=== PATIENT | male | born 1985 | race Caucasian/White ===

== ENCOUNTER 2017-08-30 12:18 | Emergency (ER) | payer SELFPAY ==
[~2017-08-30 12:18] MED LIST: IBUP800T23 PO; METH750T2 PO
--- NOTE | 2017-08-30 12:36 | PD ---
HPI Chief Complaint: Injury Time Seen by Provider: 12:28 Travel History International Travel<30 days: No Contact w/Intl Traveler<30days: No Traveled to known affect area: No History of Present Illness HPI 32-year-old male presents to emergency department complaining of left knee pain after a twist and fall that occurred today. Patient states that he was trying to move his nephew out of the street and moved quickly away from the street. Patient describes a plant and turn injury. He subsequently fell to the ground hitting his knee. States that he is able to walk however he is having moderate to severe aching pain with any range of motion of his knee. Patient denies numbness or tingling of the extremity but does state that some of pain radiates up and down his leg. Patient denies chronic medical issues or chronic medication use. He is a smoker. PFSH Past Medical History Arthritis: No Asthma: No Autoimmune Disease: No Blood Disorders: No Anxiety: No Depression: No Cancer: No Chemotherapy: No COPD: No Cerebrovascular Accident: No Diminished Hearing: No Gastrointestinal Disorders: No Headaches: No Hypertension: No Neurologic: No Psychiatric: No Reproductive: No Immunizations Current: Yes Radiation Therapy: No Renal Failure: No Seizures: Yes (as infant) Sickle Cell Disease: No Thyroid Disease: No PNEUMOCCOCAL Vaccine (Year): 2007 Past Surgical History AICD: No Pacemaker: No Other Surgery: No Social History Alcohol Use: Yes (2-3/week (4 shots/3 beers tonight)) Tobacco Use: Yes (1PPD) Substance Use: No Allergies-Medications (Allergen,Severity, Reaction): Coded Allergies: No Known Allergies (Verified , 03/28/15) Reported Meds & Prescriptions Reported Meds & Active Scripts Active Robaxin (Methocarbamol) 750 Mg Tab 750 Mg PO QID Ibuprofen 800 Mg Tab 800 Mg PO TID 10 Days Review of Systems Except as stated in HPI: all other systems reviewed are Neg Physical Exam Narrative GENERAL: Well-nourished, well-developed patient. SKIN: Focused skin assessment warm/dry. HEAD: Normocephalic. EYES: No scleral icterus. No injection or drainage. NECK: Supple, trachea midline. No JVD or lymphadenopathy. CARDIOVASCULAR: Regular rate and rhythm without murmurs, gallops, or rubs. LUNGS: Diffuse wheezing without rales or rhonchi. MUSCULOSKELETAL: No cyanosis, or edema. Left knee- warmth to the area. Mild edema especially the medial aspect. Tenderness to palpation of medial aspect. Limited range of motion to the extremes secondary to pain. No clicking. Difficulty performing varus valgus posterior and anterior drawer secondary to pain. BACK: Nontender without obvious deformity. No CVA tenderness. Data Data Last Documented VS Vital Signs Date Time Temp Pulse Resp B/P (MAP) Pulse Ox O2 Delivery O2 Flow Rate FiO2 08/30/17 13:46 08/30/17 13:04 81 18 98 Room Air Orders Orders Knee, Complete (4vws) (08/30/17 ) Ibuprofen (Motrin) (08/30/17 12:45) Ed Discharge Order (08/30/17 13:34) [facility] Medical Decision Making Medical Screen Exam Complete: Yes Emergency Medical Condition: Yes Differential Diagnosis Left knee sprain versus strain versus fracture Narrative Course 32-year-old male presents to emergency department complaining of left knee pain after a twist and fall that occurred today. Patient states that he was trying to move his nephew out of the street and moved quickly away from the street. Patient describes a plant and turn injury. He subsequently fell to the ground hitting his knee. States that he is able to walk however he is having moderate to severe aching pain with any range of motion of his knee. Patient denies numbness or tingling of the extremity but does state that some of pain radiates up and down his leg. Patient denies chronic medical issues or chronic medication use. He is a smoker. Vital signs stable Physical exam consistent with a ligamental versus meniscal injury. Skin intact. No obvious deformities. Mild edema of the medial aspect of knee. Left knee [id number] for acute process Ibuprofen 800 mg administered in the emergency department. Patient advised to use rzvw-nwo-uuunyso Profen Tylenol for pain relief. Advised follow-up primary care physician within 2-3 days. Follow-up in the emergency department for worsening or persistent symptoms. Diagnosis Primary Impression: Left knee sprain Qualified Codes: S83.92XA - Sprain of unspecified site of left knee, initial encounter Referrals: [facility] Additional Instructions: Use ice or heat for symptom relief. If symptoms persist or worsen, return to the emergency department. Follow up with your primary care physician within 2 days. Continue [id number] ibuprofen or Tylenol per package instructions Disposition: DISCHARGE HOME Condition: Stable Doris Jorge Aug 30, 2017 12:36
[2017-08-30] MEDS ORDERED: IBUPROFEN 800 MG TAB PO ONE (12:45)
[2017-08-30 13:04] VITALS: BP 124/89; PULSE 81; RESP 18; O2SAT 98
--- NOTE | 2017-08-30 13:25 | RADRPT ---
EXAM DATE/TIME: 08/30/2017 12:50 [facility] COMPARISON: No previous studies available for comparison. INDICATIONS : Fall onto left knee, pain across distal femur with pain radiating into posterior knee. MEDICAL HISTORY : None. SURGICAL HISTORY : None. ENCOUNTER: Initial ACUITY: 3 days PAIN SCORE: 10/10 LOCATION: Left knee. FINDINGS: Four view examination of the left knee demonstrates no evidence of fracture or dislocation. Bony min eralization is normal. The articular surfaces are intact. The suprapatellar soft tissues have a nor mal configuration. CONCLUSION: Negative exam. No acute fracture/effusion. Manuel Reyna MD on August 30, 2017 at 13:23 Board Certified Radiologist. This report was verified electronically.
== END 2017-08-30 13:47 | disposition home or self-care (01) ==
LOC: NEPK 12:18
DX: S83.92XA Sprain of unspecified site of left knee, initial encounter (principal); W19.XXXA Unspecified fall, initial encounter; Y93.89 Activity, other specified; Y92.410 Unspecified street and highway as the place of occurrence of the external cause
CPT/HCPCS: 73564; 99283

== ENCOUNTER 2017-12-07 13:56 | Emergency (ER) | payer SELFPAY ==
[~2017-12-07] VITALS: Ht 177.8 cm; Wt 79.1 kg
[2017-12-07 13:57] VITALS: BP 127/74; PULSE 95; RESP 16; TEMP 97.9; O2SAT 96
--- NOTE | 2017-12-07 15:07 | PD ---
HPI Chief Complaint: Back/ Neck Pain or Injury Time Seen by Provider: 14:03 Travel History International Travel<30 days: No Contact w/Intl Traveler<30days: No Traveled to known affect area: No History of Present Illness HPI 32-year-old male here with low back pain since this morning. He denies injury or trauma. 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 He denies fever or chills. No incontinence. No saddle anesthesia. No paresthesias or weakness in the extremities. Symptom severity is moderate. Aggravated by movement and slightly relieved with rest. PFSH Past Medical History Medical History: Denies Significant Hx Arthritis: No Asthma: No Autoimmune Disease: No Blood Disorders: No Anxiety: No Depression: No Cancer: No Chemotherapy: No COPD: No Cerebrovascular Accident: No Diminished Hearing: No Gastrointestinal Disorders: No Headaches: No Hypertension: No Neurologic: No Psychiatric: No Reproductive: No Immunizations Current: Yes Radiation Therapy: No Renal Failure: No Seizures: Yes (as infant) Sickle Cell Disease: No Thyroid Disease: No Influenza Vaccination: No PNEUMOCCOCAL Vaccine (Year): 2007 ?: Not Past Surgical History AICD: No Pacemaker: No Other Surgery: No Social History Alcohol Use: Yes (2-3/day) Tobacco Use: Yes (1PPD) Substance Use: No Allergies-Medications (Allergen,Severity, Reaction): Coded Allergies: No Known Allergies (Verified Adverse Reaction, Unknown, 12/07/17) Reported Meds & Prescriptions Reported Meds & Active Scripts Active Robaxin (Methocarbamol) 750 Mg Tab 750 Mg PO QID Ibuprofen 800 Mg Tab 800 Mg PO TID 10 Days Review of Systems Except as stated in HPI: all other systems reviewed are Neg General / Constitutional: No: Fever Eyes: No: Visual changes HENT: No: Headaches Cardiovascular: No: Chest Pain or Discomfort Respiratory: No: Shortness of Breath Gastrointestinal: No: Abdominal Pain Genitourinary: No: Dysuria Skin: No Rash Neurologic: No: Weakness Physical Exam Narrative GENERAL: Alert and well-appearing 52-year-old male. SKIN: Warm and dry. HEAD: Atraumatic. Normocephalic. EYES: Pupils equal and round. No scleral icterus. No injection or drainage. ENT: No nasal bleeding or discharge. Mucous membranes pink and moist. NECK: Supple CARDIOVASCULAR: Regular rate and rhythm. RESPIRATORY: No accessory muscle use. Clear to auscultation. Breath sounds equal bilaterally. GASTROINTESTINAL: Abdomen soft, non-tender, nondistended. Hepatic and splenic margins not palpable. MUSCULOSKELETAL: Extremities without clubbing, cyanosis, or edema. No obvious deformities. BACK: +TTP lumbar spine and paraspinous musculature. No step-off deformity. No CVA tenderness. NEUROLOGICAL: Awake and alert. No obvious cranial nerve deficits. Motor grossly within normal limits. Five out of 5 muscle strength in the arms and legs. Normal sensation in lower extremities bilaterally. 2+ DTRs PSYCHIATRIC: Appropriate mood and affect; insight and judgment normal. Data Data Last Documented VS Vital Signs Date Time Temp Pulse Resp B/P (MAP) Pulse Ox O2 Delivery O2 Flow Rate FiO2 12/07/17 13:57 97.9 95 16 127/74 (91) 96 Orders Orders Spine, Lumbar Comp W/Obliq (12/07/17 ) Ketorolac Inj (Toradol Inj) (12/07/17 15:45) MDM Medical Decision Making Medical Screen Exam Complete: Yes Emergency Medical Condition: Yes Differential Diagnosis Lumbar strain, herniated disc, lumbar fracture Narrative Course 32-year-old male with low back pain times one day. He is well-appearing. He has a normal neurologic exam. Afebrile. No history of IV drug abuse. X-rays negative for fracture. Patient given a shot of Toradol and reports symptom improvement. He'll be treated for lumbar strain Diagnosis Primary Impression: Lumbar strain Qualified Codes: S39.012A - Strain of muscle, fascia and tendon of lower back , initial encounter Referrals: Primary Care Physician Additional Instructions: Medication as directed. Ice and/or heat for comfort. Avoid heavy lifting or strenuous activity. Return if you have new or worsening symptoms Scripts Methocarbamol (Robaxin) 750 Mg Tab 750 MG PO QID for Muscle Spasm, #12 TAB 0 Refills Prov: Juana Ramirez 12/07/17 Ibuprofen (Ibuprofen) 800 Mg Tab 800 MG PO Q6HR Y for PAIN, #40 TAB 0 Refills Prov: Juana Ramirez 12/07/17 Disposition: 01 DISCHARGE HOME Condition: Stable Juana Ramirez Dec 07, 2017 15:07
--- NOTE | 2017-12-07 15:25 | RADRPT ---
EXAM DATE/TIME: 12/07/2017 14:29 [facility] COMPARISON: No previous studies available for comparison. INDICATIONS : Patient complains of low back pain and pain down left leg. MEDICAL HISTORY : None. SURGICAL HISTORY : None. ENCOUNTER: Initial ACUITY: 2 days PAIN SCORE: 8/10 LOCATION: Left lumbar FINDINGS: There are five non-rib bearing vertebral bodies. The vertebral bodies are in normal alignment withou t evidence of subluxation or scoliosis. The disc spaces are maintained. The posterior elements are intact without evidence of spondylolysis. The pedicles are intact. Bony mineralization is normal. No fracture is identified. CONCLUSION: Unremarkable examination of the lumbar spine. Raoul Faith Jr., MD on December 07, 2017 at 15:22 Board Certified Radiologist. This report was verified electronically.
[2017-12-07] MEDS ORDERED: KETOROLAC TROMETHAMINE 60 MG/2 ML (IM) VIAL IM ONE (15:45)
[2017-12-07] MEDS ORDERED: ROBA750T PO (15:45)
[2017-12-07] MEDS ORDERED: IBUP1TAB7 PO (15:45)
== END 2017-12-07 16:03 | disposition home or self-care (01) ==
LOC: PHEFT 13:56
DX: S39.012A Strain of muscle, fascia and tendon of lower back, initial encounter (principal); F17.210 Nicotine dependence, cigarettes, uncomplicated
CPT/HCPCS: 72110; 96372; 99283; J1885